=== PATIENT | male | born 1955 | race Caucasian/White ===

== ENCOUNTER 2016-12-31 03:04 | Emergency (ER) | payer OTHER ==
[~2016-12-31] VITALS: Ht 175.3 cm; Wt 85.0 kg
[2016-12-31 03:14] VITALS: BP 124/78; PULSE 84; RESP 12; O2SAT 91; O2SAT 92
--- NOTE | 2016-12-31 03:27 | ED.REPORT ---
HPI-Head Prob / Injury Date of Service Dec 31, 2016 ED Provider: Dr. Ulrich The pt is a 61 y/o male with a hx of DM and cirrhosis who presents to the ED complaining of a laceration on the back of his head after he fell and hit his head on a granite counter top 3 hours ago. He acknowledges consumption of alcohol and perhaps moderate intoxication. He has a history of alcohol cirrhosis and varices and is not supposed to be drinking. He states "I slipped up" There are no other complaints at this time. Nursing Notes Stated Complaint: HEAD LACERATION Chief Complaint: Head, Face, Neck Trauma Nursing Notes Reviewed: Yes General Time Seen by Provider: 03:37 Chief Complaint Laceration Hx Obtained From: Patient Arrived By: Walk-in Onset Occurred: 1 - 4 hours ago Symptom Duration: Since onset Recent Healthcare: No recent doctor visit Past Medical History Past Medical History DM Cirrhosis Past Surgical History none reported Smoking History Unknown if Ever Smoker Social History Other Social History: Good social support Ambulatory Status Independent Review of Systems Reports: laceration in the occipital region Complete sys rev & neg: except as marked. Physical Exam Initial Vital Signs Vital Signs (First) Date Time Temp Pulse Resp B/P Pulse Ox O2 Delivery O2 Flow Rate FiO2 12/31/16 03:14 37.1 84 12 124/78 92 Room Air Initial VS: Reviewed Respiratory: No respiratory distress Cardiovascular: Intact distal pulses Abdomen / GI: No guarding, No distention Extremities: Vascular intact, Neuro intact, No swelling, No tenderness Skin: Warm, Dry, No cyanosis General/Constitutional: Awake, Alert, Cooperative Appearance / Presentation: Positive: Icteric, Intoxicated, Pale Head / Eyes: Normocephalic 6cm laceration to the back of his head. Yellow sclera ENT: Atraumatic, No facial swelling Neck: Atraumatic, Supple, Full range of motion, No swelling, Non-tender Neurologic: Oriented X3, Speech NL, No motor deficits, No sensory deficits Upper Extremity / MS: Atraumatic, Full range of motion, No swelling, Non-tender , No erythema, No deformity, Neurologic intact, Vascular intact Lower Extremity / Pelvis / MS: Atraumatic, Full range of motion, No swelling, Non-tender, No erythema, No deformity, Neurologic intact, Vascular intact Procedures Laceration Management Laceration Management: Laceration closed with 11 jesus Time: 03:42 Procedure Performed by: ED physician Consent / Setup / Site Prep: Consent from patient, Time-out performed, Hand hygiene observed, Stand sterile technique Location of Wound: Occipital region Wound Length: 6 cm Local Anesthesia: Lidocaine 1% Digital Block: No Wound Preparation: Normal saline Debridement: None Irrigation: Copious Foreign Body Explore / Removal: Explored for foreign body Closure Layers: 1 Post-Procedure / Complications: Antibiotic oint applied, Dressing applied, No complications, Condition improved, Tolerated procedure well, Patient stable Re-Eval/Medical Decision Med Decision/Clinical Course 61-year-old with cirrhosis presents with a 6 cm laceration on the back of his head. Denies loss of consciousness. No neck pain. Repaired with jesus after lidocaine and saline lavage. Return in a week for staple removal. Judd discussion with him about his returned alcohol consumption as a lethal issue for somebody with alcoholic hepatitis and cirrhosis. Re-Evaluation/Progress : Time of Eval: 03:55 Re-Evaluation/Progress Note: Rechecked pt. Discussed diagnosis and plan to discharge. Pt understands and agrees with the plan. F/U instruction and RTER warning given. All questions addressed. Counseled Regarding: Diagnosis, Need for follow-up, When/why to return to ED Discharge & Departure Primary Impression: Scalp laceration Encounter type: initial encounter Qualified Code: S01.01XA - Laceration without foreign body of scalp, initial encounter Additional Impressions: Alcohol intoxication Complication of substance-induced condition: uncomplicated Qualified Code: F10.120 - Alcohol abuse with intoxication, uncomplicated Alcoholic cirrhosis of liver Ascites presence: without ascites Qualified Code: K70.30 - Alcoholic cirrhosis of liver without ascites Disposition: Home All VS Reviewed: Yes Condition: Stable Patient Instructions: Laceration (ED) Additional Instructions: Return here in a week for staple removal. Return here promptly if vomiting or other new symptoms develop. Refer to head injury instructions for additional precautions. It is critical that he stop drinking immediately. Your liver is already severely damaged, and it is dangerous for you to drink. Referrals: Lisbeth Welsh Scribe Attestation Portions of this note were transcribed by Gely Chatman. I,, personally performed the history,physical exam and medical decision-making;I reviewed and confirmed the accuracy of the information in the transcribed note. Signed by Ge Roberson. 12/31/16 King Ulrich MD Dec 31, 2016 03:27 Gely Chatman Dec 31, 2016 03:44
[2016-12-31 04:16] VITALS: BP 132/74; PULSE 84; RESP 17; O2SAT 95
== END 2016-12-31 04:18 | disposition home or self-care (01) ==
LOC: SED 03:04
DX: S01.01XA Laceration without foreign body of scalp, initial encounter (principal); F10.120 Alcohol abuse with intoxication, uncomplicated; K70.30 Alcoholic cirrhosis of liver without ascites; W01.198A Fall on same level from slipping, tripping and stumbling with subsequent striking against other object, initial encounter; Y93.9 Activity, unspecified; Y92.009 Unspecified place in unspecified non-institutional (private) residence as the place of occurrence of the external cause; Y99.8 Other external cause status; E11.9 Type 2 diabetes mellitus without complications

== ENCOUNTER 2017-01-26 05:27 | Emergency (ER) | payer OTHER ==
[~2017-01-26] VITALS: Ht 175.3 cm; Wt 85.0 kg
[2017-01-26 05:33] VITALS: BP 137/76; PULSE 76; RESP 18; O2SAT 96
--- NOTE | 2017-01-26 05:50 | ED.REPORT ---
HPI-General Illness Date of Service Jan 26, 2017 ED Provider: King Ulrich MD The patient is a 61 year old male with a history of DM, and cirrhosis presenting to the ED for staple removal from his last visit 26 days ago. He is only here to remove the harika in his scalp. He is otherwise healthy. He denies fever, nausea, headache, vomiting, chills, or shortness of breath. Nursing Notes Stated Complaint: STAPLE REMOVAL Chief Complaint: Staple/Suture Removal Nursing Notes Reviewed: Yes Allergies: Coded Allergies: No Known Allergies (Unverified , 01/26/17) General Time Seen by MD: 05:45 Chief Complaint Other (staple removal) Hx Obtained From: Patient Arrived By: Walk-in Location: : Head (scalp back right) Recent Healthcare: No recent hospitalization, Recent doctor visit Similar Sx Previous: No Past Medical History Past Medical History DM Cirrhosis Past Surgical History none reported Smoking History Unknown if Ever Smoker Social History Other Social History: Good social support Ambulatory Status Independent Review of Systems suture removal Full Review of Systems Constitutional: Denies: Chills, Fever Respiratory: Denies: Shortness of breath GI: Denies: Nausea, Vomiting Neurologic: Denies: Headache Complete sys rev & neg: except as marked. Physical Exam Vital Signs Vital Signs Date Time Temp Pulse Resp B/P Pulse Ox O2 Delivery O2 Flow Rate FiO2 01/26/17 05:33 36.4 76 18 137/76 96 Room Air Initial VS: Reviewed, Vital signs normal General/Constitutional: Well-developed, Well-nourished Head / Eyes: Atraumatic, Normocephalic ENT: Mucous membranes moist, Conjunctiva normal Neck: Supple, Non-tender, Full range of motion Respiratory: Breath sounds normal, Clear to auscultation, No respiratory distress Cardiovascular: Regular rate & rhythm, Heart sounds normal Abdomen / GI: Soft, Non-tender Back: No CVA tenderness Lymphatic: No lymphadenopathy Extremities: Vascular intact, Neuro intact Neurologic: Alert, Oriented Psychiatric: Mood/affect normal, Behavior normal Skin: Atraumatic, Warm, Dry Wound healing well on scalp Procedures Suture Removal No complications Time: 05:55 Procedure Performed by: ED physician Wound Condition: Good healing, No sign of infection Number Removed: Removed ahrika, 10, All Re-Eval/Medical Decision Med Decision/Clinical Course 61-year-old presents in delayed fashion for staple removal. Harika removed from fairly substantial clot adherent to his scalp and hair. Tolerated well and discharged on stable condition. Time of Eval: 05:54 Re-Evaluation/Progress Note: Staple removal procedure performed. Discussed plan to discharge. Pt agrees with plan. All questions addressed. Counseled Regarding: Diagnosis, Need for follow-up, When/why to return to ED Discharge & Departure Primary Impression: Removal of harika Disposition: Home Discharge Condition All VS Reviewed: Yes Condition: Improved Patient Instructions: Acute Wounds (ED) Additional Instructions: You may shower and wash your hair as needed. Follow-up with your doctor in the office as needed. Return if any immediate issues. Referrals: Lisbeth Welsh (PCP) Amelieiberasmo Attestation Portions of this note were transcribed by Abdelrahman Felix. I, Dr. Ulrich personally performed the history, physical exam and medical decision-making; I reviewed and confirmed the accuracy of the information in the transcribed note. Signed by: Ge Wallace, 01/26/2017 copies to: Lisbeth Welsh Christopher W MD Jan 26, 2017 05:49 Jan 26, 2017 06:00
== END 2017-01-26 06:29 | disposition home or self-care (01) ==
LOC: SED 05:47
DX: S01.01XD Laceration without foreign body of scalp, subsequent encounter (principal); W01.198D Fall on same level from slipping, tripping and stumbling with subsequent striking against other object, subsequent encounter; Y93.89 Activity, other specified; Y99.8 Other external cause status; Y92.89 Other specified places as the place of occurrence of the external cause